=== PATIENT | female | born 1965 | race Asian ===

== ENCOUNTER 2021-01-10 21:10 | Emergency (ER) | payer BC ==
[2021-01-11] MEDS ORDERED: ZOFRAN ODT 4 MG4 MG PO (01:28)
[2021-01-11] MEDS ORDERED: PERCOCET 5-3251 EACH PO (01:28)
[2021-01-18] MEDS ORDERED: HYDROCODON-ACE1 EAC4 PO (14:56)
[2021-01-18] MEDS ORDERED: HYDROCODON-ACE1 EAC2 PO (14:57)
== END 2021-01-11 02:05 | disposition home or self-care (01) ==
LOC: ER1 21:10
DX: S82.852A Displaced trimalleolar fracture of left lower leg, initial encounter for closed fracture (principal); S82.832A Other fracture of upper and lower end of left fibula, initial encounter for closed fracture; S82.432A Displaced oblique fracture of shaft of left fibula, initial encounter for closed fracture; Z88.0 Allergy status to penicillin; W19.XXXA Unspecified fall, initial encounter; Y92.009 Unspecified place in unspecified non-institutional (private) residence as the place of occurrence of the external cause
CPT/HCPCS: 73590; 73610; 73700; 99284; J2704

== ENCOUNTER → 2021-01-20 | Day surgery (SDC) | payer BC ==
[~2021-01-20] VITALS: Ht 157.5 cm; Wt 63.5 kg
[~2021-01-20] MED LIST: HYDROCODON-ACE1 EAC2 PO; HYDROCODON-ACE1 EAC4 PO; PERCOCET 5-3251 EACH PO; ZOFRAN ODT 4 MG4 MG PO
== END | disposition home or self-care (01) ==
LOC: OR 06:53
DX: S82.852A Displaced trimalleolar fracture of left lower leg, initial encounter for closed fracture (principal); Z82.49 Family history of ischemic heart disease and other diseases of the circulatory system; Z88.0 Allergy status to penicillin; W19.XXXA Unspecified fall, initial encounter
CPT/HCPCS: 73600; 73610; 76000; C1713; C1769; J0171; J0690; J1100; J1885; J2001; J2250; J2405; J2704; J2795; J3010; J3370; J7120

== ENCOUNTER 2021-01-22 10:00 | Emergency (ER) | payer BC | END 2021-01-22 12:30 | disposition home or self-care (01) | LOC: ER1 10:00 | DX: G89.18 Other acute postprocedural pain (principal); M25.572 Pain in left ankle and joints of left foot; Z88.8 Allergy status to other drugs, medicaments and biological substances | CPT/HCPCS: 73610; 99283 ==

== ENCOUNTER → 2021-02-02 | Outpatient (CLI) | payer BC | LOC: KOH-I 11:20 | DX: S82.852A Displaced trimalleolar fracture of left lower leg, initial encounter for closed fracture (principal) | CPT/HCPCS: 73610 ==

== ENCOUNTER → 2021-02-18 | Outpatient (CLI) | payer BC | LOC: KOH-I 16:07 | DX: S82.852A Displaced trimalleolar fracture of left lower leg, initial encounter for closed fracture (principal) | CPT/HCPCS: 73610 ==

== ENCOUNTER → 2021-03-04 | Outpatient (CLI) | payer BC | LOC: KOH-I 13:01 | DX: S82.852D Displaced trimalleolar fracture of left lower leg, subsequent encounter for closed fracture with routine healing (principal) | CPT/HCPCS: 73610 ==

== ENCOUNTER → 2021-03-25 | Outpatient (CLI) | payer BC | LOC: KOH-I 15:02 | DX: S82.852A Displaced trimalleolar fracture of left lower leg, initial encounter for closed fracture (principal); S82.852D Displaced trimalleolar fracture of left lower leg, subsequent encounter for closed fracture with routine healing | CPT/HCPCS: 73610 ==

== ENCOUNTER → 2021-05-06 | Outpatient (CLI) | payer BC | LOC: KOH-I 15:50 | DX: S82.852A Displaced trimalleolar fracture of left lower leg, initial encounter for closed fracture (principal); M85.872 Other specified disorders of bone density and structure, left ankle and foot | CPT/HCPCS: 73610 ==

== ENCOUNTER → 2021-06-03 | Outpatient (CLI) | payer BC | LOC: KOH-I 09:42 | DX: S82.852D Displaced trimalleolar fracture of left lower leg, subsequent encounter for closed fracture with routine healing (principal) | CPT/HCPCS: 73610 ==

== ENCOUNTER → 2021-08-17 | Outpatient (CLI) | payer MEDICAID | LOC: KOH-I 15:47 | DX: S82.852D Displaced trimalleolar fracture of left lower leg, subsequent encounter for closed fracture with routine healing (principal) | CPT/HCPCS: 73610 ==

== ENCOUNTER → 2021-11-01 | Outpatient (CLI) | payer OTHER | LOC: KOH-I 08:42 | DX: S82.852D Displaced trimalleolar fracture of left lower leg, subsequent encounter for closed fracture with routine healing (principal) | CPT/HCPCS: 73610 ==

== ENCOUNTER → 2021-12-13 | Outpatient (CLI) | payer OTHER | LOC: KOH-I 08:41 | DX: S82.852A Displaced trimalleolar fracture of left lower leg, initial encounter for closed fracture (principal); M85.872 Other specified disorders of bone density and structure, left ankle and foot; X58.XXXA Exposure to other specified factors, initial encounter | CPT/HCPCS: 73610 ==

== ENCOUNTER → 2021-12-22 | Outpatient (CLI) | payer OTHER | LOC: CT 09:30 | DX: S82.52XK Displaced fracture of medial malleolus of left tibia, subsequent encounter for closed fracture with nonunion (principal); X58.XXXD Exposure to other specified factors, subsequent encounter | CPT/HCPCS: 73700 ==

== ENCOUNTER → 2022-01-21 | Outpatient (CLI) | payer OTHER | LOC: KOH-I 15:47 | DX: J18.9 Pneumonia, unspecified organism (principal) | CPT/HCPCS: 71046 ==

== ENCOUNTER → 2022-02-24 | Outpatient (CLI) | payer OTHER | LOC: KOH-I 10:23 | DX: J18.9 Pneumonia, unspecified organism (principal) | CPT/HCPCS: 71046 ==